=== PATIENT | female | born 1975 | race African-American/Black ===

== ENCOUNTER 2017-07-27 21:41 | Emergency (ER) | payer BC ==
[~2017-07-27] VITALS: Ht 157.5 cm; Wt 83.5 kg
[2017-07-27 21:50] VITALS: BP 130/84
--- NOTE | 2017-07-27 22:33 | PHYS DOC ---
Past Medical History Past Medical History: Cancer Additional Past Medical Histor: breast ca Past Surgical History: No Surgical History Alcohol Use: Occasionally Drug Use: None Adult General Chief Complaint Chief Complaint: FINGER INJURY HPI HPI Patient is a 42 year old female presents to the emergency department with complaints of left fifth finger pain. Patient states she was playing basketball with her children when the ball struck her left finger. She states she had immediate onset of pain and noted swelling. The incident occurred approximately 2 hours prior to arrival in the emergency department. Review of Systems Review of Systems Constitutional: Denies fever or chills [] Eyes: Denies change in visual acuity, redness, or eye pain [] HENT: Denies nasal congestion or sore throat [] Respiratory: Denies cough or shortness of breath [] Cardiovascular: No additional information not addressed in HPI [] GI: Denies abdominal pain, nausea, vomiting, bloody stools or diarrhea [] : Denies dysuria or hematuria [] Musculoskeletal: Left finger pain Integument: Denies rash or skin lesions [] Neurologic: Denies headache, focal weakness or sensory changes [] Endocrine: Denies polyuria or polydipsia [] Current Medications Current Medications Current Medications Medications (Trade) Dose Ordered Sig/Shelly Start Time Stop Time Status Last Admin Dose Admin Ibuprofen (Motrin) 600 mg 1X ONCE 07/27/17 23:00 07/27/17 23:00 DC Allergies Allergies Allergies Coded Allergies Type Severity Reaction Last Updated Verified No Known Drug Allergies 07/27/17 No Physical Exam Physical Exam Constitutional: Well developed, well nourished, no acute distress, non-toxic appearance. [] Extremities: Left hand exam: Left fifth finger with swelling from the MCP to the DIP. There is no ecchymosis. She is mildly tender over the proximal phalanx. She will allow for full range of motion both active and passive. Neurovascular intact distally. Remainder of hand exam unremarkable. Current Patient Data Vital Signs Vital Signs Date Time Temp Pulse Resp B/P (MAP) Pulse Ox O2 Delivery O2 Flow Rate FiO2 07/27/17 21:50 98.7 71 18 99 Room Air 98.7 EKG EKG [] Radiology/Procedures Radiology/Procedures Left hand x-ray, fracture of the proximal end of the middle phalanx.[] Course & Med Decision Making Course & Med Decision Making Pertinent Labs and Imaging studies reviewed. (See chart for details) Aluminum splint placed by nursing staff. Patient tolerated procedure well. Neurovascular intact distally. Patient will be discharged home with Tylenol with Codeine No. 20 one by mouth every 6 when necessary for pain no refills. She is to follow-up with orthopedics. To the emergency department new symptoms or concerns or worsening condition I spoke with the patient and/or care givers. I've explained the patient's condition, diagnosis and treatment plan based on the information available to me at this time. I've answered the patient's and/or care givers questions and a dressing concerns. The patient and/or care givers have as good an understanding of the patient's diagnosis, condition and treatment plan as can be expected at this time. Vital signs stable. The patient's condition is stable and appropriate for discharge from the emergency department. The patient will pursue further outpatient evaluation with the primary care physician or other designated or consulting physician as outlined in the discharge instructions. The patient and/or care givers are agreeable to this plan of care and follow-up instructions and explained in detail. The patient and /or care givers have received these instructions in written format and have expressed an understanding of the discharge instructions. The patient and/or caregivers are aware that any significant change in condition or worsening of symptoms should prompt immediate return to this closest emergency department or call to 911. Matilda Disclaimer Matilda Disclaimer This electronic medical record was generated, in whole or in part, using a voice recognition dictation system. Departure Departure Impression: Primary Impression: Fracture of phalanx of finger Disposition: 01 HOME, SELF-CARE Condition: STABLE Referrals: NO PCP (PCP) GAURI OSBORN MD Patient Instructions: Finger Fracture, RICE - Routine Care for Injuries Scripts Acetaminophen With Codeine (TYLENOL WITH CODEINE #3 TABLET) 1 Each Tablet 1 TAB PO PRN Q6HRS Y for PAIN, #20 TAB Prov: ANIL SMITH APRN 07/27/17 Problem Qualifiers Primary Impression: Fracture of phalanx of finger Encounter type: initial encounter Finger: little finger Fracture type: closed Phalanx: middle Fracture alignment: nondisplaced Laterality: left Qualified Codes: S62.657A - Nondisplaced fracture of medial phalanx of left little finger, initial encounter for closed fracture ANIL SMITH APRN Jul 27, 2017 22:33
[2017-07-27] MEDS ORDERED: ACET-704 PO (22:56)
[2017-07-27] MEDS ORDERED: IBUPROFEN 600 MG TABLET. PO ONE (23:00)
--- NOTE | 2017-07-28 08:12 | RAD ---
Left fifth finger 3 views. History: Injured finger playing basketball, pain 3 views were taken of the left fifth finger. There is a longitudinal fracture through the mid phalanx of the fifth finger. The fracture to extends to the proximal interphalangeal joint with mild displacement of the fragments. Impression: 1. Fracture mid phalanx left fifth finger.
== END 2017-07-27 23:05 | disposition home or self-care (01) ==
LOC: ER 21:41
DX: S62.627A Displaced fracture of middle phalanx of left little finger, initial encounter for closed fracture (principal); W21.05XA Struck by basketball, initial encounter; Y93.89 Activity, other specified; Y92.89 Other specified places as the place of occurrence of the external cause; Y99.8 Other external cause status
CPT/HCPCS: 29130; 73140; 99284-25